=== PATIENT | female | born 1990 | race Caucasian/White ===

== ENCOUNTER 2017-02-20 18:56 | Emergency (ER) | payer OTHER | END 2017-02-20 22:45 | disposition home or self-care (01) | LOC: ER 18:56 | DX: M54.2 Cervicalgia (principal); M54.9 Dorsalgia, unspecified; M79.1 Myalgia; V43.62XD Car passenger injured in collision with other type car in traffic accident, subsequent encounter; F17.210 Nicotine dependence, cigarettes, uncomplicated; Z79.899 Other long term (current) drug therapy | CPT/HCPCS: 72040; 72072; 72100; 80307; 81025; 96372; 99283-25 ==